=== PATIENT | male | born 1990 | race Two or more races ===

== ENCOUNTER 2019-04-03 12:02 | Emergency (ER) | payer OTHER ==
[~2019-04-03] VITALS: Ht 177.8 cm; Wt 99.3 kg
--- NOTE | 2019-04-03 12:02 | NUR ---
"BIB [facility] 40 AND [employer],S/P SEIZURE WHILE TALKING WITH FAMILY IN VISITING AREA,BLOOD SUGAR 89,HEMATOMA-R PARIETAL" pt [id number], -sob, nad noted, vss, pending md jimenez
[2019-04-03 12:19] LABS: BASOPHILS # (AUTO) 0.1 /CMM (0.0-0.2); EOSINOPHILS % (AUTO) 0.7 % (0.0-6.0); HEMATOCRIT 46 % (39-51); HEMOGLOBIN 15.3 g/dL (13.5-17.5); LYMPHOCYTES % (AUTO) 18.7 % (20.0-44.0); MEAN CORPUSCULAR HGB CONC 34 g/dl (31.0-36.0); MEAN CORPUSCULAR VOLUME 97 fL (80-96); MONOCYTES # (AUTO) 1.2 /CMM (0.1-1.30); MONOCYTES % (AUTO) 10.8 % (2.0-12.0); NEUTROPHILS # (AUTO) 7.4 /CMM (1.8-8.9); NEUTROPHILS % (AUTO) 68.8 % (43.0-81.0); PLATELET COUNT (AUTO) 218 /CMM (150-450); RED BLOOD CELL COUNT(AUTO) 4.72 MIL/uL (4.5-6.0); WHITE BLOOD COUNT (AUTO) 10.8 K/uL (4.3-11.0)
[2019-04-03 14:00] VITALS: BP 124/80
--- NOTE | 2019-04-03 14:23 | NUR ---
Patient discharged to home in stable condition. Written and verbal after care instructions given. Patient verbalizes understanding of instruction.
== END 2019-04-03 14:25 ==
LOC: ER 12:02
DX: S00.03XA Contusion of scalp, initial encounter (principal); R56.9 Unspecified convulsions; W18.09XA Striking against other object with subsequent fall, initial encounter; Y93.89 Activity, other specified; Y92.89 Other specified places as the place of occurrence of the external cause; Y99.8 Other external cause status
CPT/HCPCS: 36415; 70450-TC; 80048-TC; 85025-TC